=== PATIENT | female | born 1970 | race African-American/Black ===

== ENCOUNTER 2023-05-11 04:24 | Day surgery (SDC) | payer OTHER ==
[2023-05-09 16:13] VITALS: BMI 24.9
[2023-05-11] MEDS ORDERED: LIDOCAINE VISCOUS 2% ORAL/TOP 15 ML UNIT-DOSE CUP ONE (07:47)
[2023-05-11] MEDS ORDERED: KETAMINE HCL 200 MG/20 ML VIAL ONE (07:47)
[2023-05-11 09:12] VITALS: BP 122/64; PULSE 75; RESP 16; TEMP 98.2
== END 2023-05-11 09:30 | disposition home or self-care (01) ==
LOC: JASU-ENDO 04:24
PROVIDERS: ATTEND Student in an Organized Health Care Education/Training Program
PROC: 0DBK8ZX Excision of Ascending Colon, Via Natural or Artificial Opening Endoscopic, Diagnostic (ICD-10-PCS; 2023-05-11)
PROC: 0DBE8ZX Excision of Large Intestine, Via Natural or Artificial Opening Endoscopic, Diagnostic (ICD-10-PCS; 2023-05-11)
PROC: 0DBK8ZX Excision of Ascending Colon, Via Natural or Artificial Opening Endoscopic, Diagnostic (ICD-10-PCS; principal; 2023-05-11 08:00)
DX: Z12.11 Encounter for screening for malignant neoplasm of colon (principal); D12.2 Benign neoplasm of ascending colon; D12.6 Benign neoplasm of colon, unspecified; Z85.038 Personal history of other malignant neoplasm of large intestine; Z98.0 Intestinal bypass and anastomosis status
CPT/HCPCS: 82962; 88305-TC